=== PATIENT | female | born 1955 | race Caucasian/White ===

== ENCOUNTER 2019-12-03 16:15 | Emergency (ER) | payer OTHER ==
[~2019-12-03] VITALS: Ht 154.9 cm; Wt 74.8 kg
[~2019-12-03 16:15] MED LIST: DARVOCET-N 1001 EAC1 PO; EFFEXOR; GLUCOSA-CHOND-1 EACH PO; IBUPROFEN 600600 M1 PO; IBUPROFEN 800800 M1 PO; MELATONIN5 M1 PO; NORFLEX100 MG PO
[2019-12-03 19:20] VITALS: BP 154/97
== END 2019-12-03 19:21 | disposition home or self-care (01) ==
LOC: ER 16:15
DX: R05 Cough (principal); R50.9 Fever, unspecified; I10 Essential (primary) hypertension; Z79.1 Long term (current) use of non-steroidal anti-inflammatories (NSAID); Z79.899 Other long term (current) drug therapy; Z88.0 Allergy status to penicillin; Z88.5 Allergy status to narcotic agent; Z88.8 Allergy status to other drugs, medicaments and biological substances